=== PATIENT | male | born 2000 | race Caucasian/White ===

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

== ENCOUNTER 2019-03-17 12:01 | Emergency (ER) | payer MEDICAID ==
[~2019-03-17] VITALS: Ht 185.4 cm; Wt 81.6 kg
[2019-03-17 12:21] VITALS: Ht 185.4 cm; Wt 81.6 kg
[2019-03-17 15:06] VITALS: BP 112/64
== END 2019-03-17 15:06 | disposition home or self-care (01) ==
LOC: ED 12:01
DX: S63.502A Unspecified sprain of left wrist, initial encounter (principal); S60.221A Contusion of right hand, initial encounter; E05.90 Thyrotoxicosis, unspecified without thyrotoxic crisis or storm; W22.8XXA Striking against or struck by other objects, initial encounter; Y93.89 Activity, other specified; Y92.89 Other specified places as the place of occurrence of the external cause; Y99.8 Other external cause status